=== PATIENT | male | born 1995 | race Caucasian/White ===

== ENCOUNTER 2024-11-05 11:21 | Emergency (ER) | payer OTHER, MEDICAID, MEDICARE, SELFPAY ==
--- OUTSIDE RECORDS SUMMARY | 2024-06-24 06:30 | XMS_ITS ---
Author Organization [facility], Address [address] [facility] [place] [address] Care Team Providers Care Parking Regulation Enforcement Officer Name Role Phone Aracely Leigh Primary Care Provider Barbara Sosa [phone] Allergies No Known Allergies REASON FOR VISIT 6wk f/u confusion Medications Medication SIG (Take, Route, Frequency, Duration) Notes Start Date End Date Status benztropine 1 mg tablet 1 tab(s) orally once Not-Taking losartan 50 mg tablet 1 tab(s) orally on ce a day Not-Taking multivitamin Not-Parish ing Adderall 20 mg tablet 1 tab(s) orally 2 times a day Not-Taking clonazePAM 1 mg tablet 1 tab(s) orally PRN Not-Taking sildenafil 50 mg tablet 1 tab(s) orally once a day Not-Taking perphenazine 8 mg tablet 1 tab(s) orally 2 times a day Active divalproex sodium 500 mg delayed release tablet 3 tabs orally once a day Active traZODone 50 mg tablet as directed orally Not-Taking LORazepam 0.5 mg tablet 1 tab(s) orally PRN Active buPROPion 300 mg/24 hours tablet, extended release 1 tab(s) orally every 24 hours Active Social History Social History Additional Details Category Social Info Options Details General Alcohol: No Caffeine: Yes soda Drug use: marijuana Lives with: Mother Encounters Encounter Location Date Provider Diagnosis [facility], [address] [facility] [address] [place] [address] 06/24/2024 Barbara Andino Plan Of Treatment No Information Progress Notes * Davis KIMDOB: [birth year] (29 yo M)Acc No.[id number]:06/24/2024 E30 Patient: Davis Jara Provider: Myra Andino CNP :1995 A ge:29 Y S ex:Male Date:06/24/2024 Address:[address] [place] [address], [id number] Pcp:Aracely Leigh Patient's Default Facility: [facility] Subjective: * Chief Complaints: * 6 wk f/u confusion * ROS: 1 0 systems including constitutional, neurological, eyes, ENT, cardiovascular, respiratory, GI, , musculoskeletal, and skin were reviewed. Negative unless otherwise specified in HPI. * Medical History: ADHD Anxiety Impotence Bipolar 1 disorder Depression Schizoaffective disorder Vitamin D Deficiency Hyperlipidemia GOUT Heat syncope Nausea and vomiting Dysuria Hyepertension Medical History Verified * Surgical History: Colonoscopy & biopsy 10/2013 Excision - Sebaceous cyst 02/2016 Surgical History verified. * Hospitalization/Major Diagno stic Procedure: Psych Floor - Suicidal ideas 08/14/2019 [facility] - Suicidal ideas 04/25/2020 [facility] - confusion 02/2024 Hospitalization Verified. * Family History: F amily History Verified.. Fhx of Parkinson's Grandparents had strokes. * Social History: G eneral: T obacco Use D o you smoke? never smoker .. A lcohol: No. Drug use: marijuana. Caffeine: Yes soda. Lives with: Mother. Social History Verified. * Medications: T akingbuPROPion 300 mg/24 hours tablet, extended release 1 tab(s) orally every 24 hours divalproex sodium 500 mg delayed release tablet 3 tabs orally once a day LORazepam 0.5 mg tablet 1 tab(s) orally PRN perphenazine 8 mg tablet 1 tab(s) orally 2 times a day Taking buPROPion 300 mg/24 hours tablet, extended release 1 tab(s) orally every 24 hours Taking divalproex sodium 500 mg delayed release tablet 3 tabs orally once a day Taking LORazepam 0.5 mg tablet 1 tab(s) orally PRN Taking perphenazine 8 mg tablet 1 tab(s) orally 2 times a day Not-TakingAdderall(amphetamine-dextroamphetamine) 20 mg tablet 1 tab(s) orally 2 times a day benztropine 1 mg tablet 1 tab(s) orally once clonazePAM 1 mg tablet 1 tab(s) orally PRN losartan 50 mg tablet 1 tab(s) orally once a day multivitamin sildenafil 50 mg tablet 1 tab(s) orally once a day traZODone 50 mg tablet as directed orally Not-Taking Adderall(amphetamine-dextroamphetamine) 20 mg tablet 1 tab(s) orally 2 times a day Not-Taking benztropine 1 mg tablet 1 tab(s) orally once Not-Taking clonazePAM 1 mg tablet 1 tab(s) orally PRN Not-Taking losartan 50 mg tablet 1 tab(s) orally once a day Not-Taking multivitamin Not-Taking sildenafil 50 mg tablet 1 tab(s) orally once a day Not-Taking traZODone 50 mg tablet as directed orally * Allergies: N .K.D.A.yesAllergies Verified. Billing Information: * Procedure Codes: * Electronic signature of Sophia Andino NP on 11/05/2024 at 03:28 PM EDT Sign off status: Pending * Provider: Myra Andino CNP Date: 0 06/24/2024 Generated for Melissa poole/Corrie/Maverick on: 11/05/2024 03:28 PM EDT
--- OUTSIDE RECORDS SUMMARY | 2024-07-01 07:30 | XMS_ITS ---
Author Organization [facility], Address [address] [address] Care Team Providers Care Bartender Helper Name Role Phone Aracely Leihg Primary Care Provider Barbara Sosa [phone] Allergies No Known Allergies REASON FOR VISIT f/u confusion Medications Medication SIG (Take, Route, Frequency, Duration) Notes Start Date End Date Status perphenazine 8 mg tablet 1 tab(s) orally 2 times a day Active LORazepam 0.5 mg tablet 1 tab(s) orally PRN Active traZODone 50 mg tablet as directed orally Not-Taking sildenafil 50 mg tablet 1 tab(s) orally once a day Not-Taking losartan 50 mg tablet 1 tab(s) orally on ce a day Not-Taking multivitamin Not-Parish ing benztropine 1 mg tablet 1 tab(s) orally once Not-Taking clonazePAM 1 mg tablet 1 tab(s) orally PRN Not-Taking buPROPion 300 mg/24 hours tablet, extended release 1 tab(s) orally every 24 hours Active divalproex sodium 500 mg delayed release tablet 3 tabs orally once a day Active Adderall 20 mg tablet 1 tab(s) orally 2 times a day Not-Taking Social History Social History Additional Details Category Social Info Options Details General Alcohol: No Caffeine: Yes soda Drug use: marijuana Lives with: Mother Encounters Encounter Location Date Provider Diagnosis [facility], [address] [facility] [address] [place] [phone] 07/01/2024 Barbara Andino Plan Of Treatment No Information Progress Notes * Davis KIMDOB: [birth year] (29 yo M)Acc No.[id number]:07/01/2024 E30 Patient: Davis Jara Provider: Myra Andino CNP :1995 A ge:29 Y S ex:Male Date:07/01/2024 Address:[address] [place] [address], [facility] Pcp:Aracely Leigh Patient's Default Facility: [facility] Subjective: * Chief Complaints: * F /u confusion * ROS: 1 0 systems including [...] ideas 08/14/2019 [facility] - Suicidal ideas 04/25/2020 [facility] - confusion 02/2024 Hospitalization Verified. * [...] * Procedure Codes: * Electronic signature of Beve shola Andino NP on 11/05/2024 at 03:28 PM EDT Sign off status: Pending * Provider: Myra Andino CNP Date: 0 07/01/2024 Generated for Melissa poole/Corrie/Maverick on: 0 11/05/2024 03:28 PM EDT
--- NOTE | ~2024-11-05 | XR_ITS ---
EXAMINATION: XR HAND, RIGHT CLINICAL INFORMATION: hand trauma COMPARISON: None available. TECHNIQUE: PA, lateral, and oblique views of the right hand. FINDINGS: On the lateral projection, there is a comminuted fracture/bone fragment arising from the distal carpal row dorsally, most likely a hamate avulsion fracture. This is not as well appreciated on the AP or oblique views. No additional fracture or dislocation. Joint spaces appear preserved. There is overlying soft tissue swelling of the dorsum of the hand and dorsum of the wrist. XR/XR hand RT min 3V IMPRESSION: Comminuted avulsion fracture of the dorsal hamate. Associated soft tissue swelling. Electronically signed by: Davis Duran MD 11/05/2024 12:03 PM EDT
[2024-11-05 11:28] VITALS: BP 136/90; PULSE 92; O2SAT 97
[2024-11-05 11:32] VITALS: BP 118/70; PULSE 90; RESP 18; TEMP 36; O2SAT 97; BMI 39.6
--- NOTE | 2024-11-05 11:32 | ED_ITS ---
HPI - Extremity Injury (Upper) General Chief Complaint: Extremity Injury, Upper Stated Complaint: R HAND PAIN/SWELLING [facility] Time Seen by Provider: 11/05/24 11:28 Source: patient and EMS Mode of arrival: EMS Limitations: no limitations History of Present Illness ED Provider: HPI narrative: 29-year-old male coming from [facility], he punched a door after somebody called him a white devil , bruising and swelling of the extremity noted Related Data Previous Rx's ?Medication ?Instructions ?Recorded naproxen 500 mg tablet 500 mg PO BID 10 days #20 ta bs 11/05/24 Allergies Allergy/AdvReac Type Severity Reaction Status Date / Time No Known Allergies Allergy Verified 11/05/24 11:35 Review of Systems Constitutional: Constitutional: Reports as per [facility] Social History Social History Advance Directives: No Advance Directives Information Provided: No Do you have a plan to hurt others: No Plan Physical Exam Vital Signs: Vital Signs: Last Vital Signs Temp 96.8 F 11/05/24 11:32 Pulse 90 11/05/24 11:32 Resp 18 11/05/24 11:32 BP 118/70 11/05/24 11:32 Pulse Ox 97 11/05/24 11:32 O2 Del Method Room Air 11/05/24 11:32 BMI result Body Mass Index 39.6 Const: Other: Alert and oriented x4 Examination of right upper extremity with full range of motion of the shoulder, elbow and wrist, swelling of the dorsum of the hand and some bruising on the palmar aspect see able to squeeze my hands but his fingers hitchhike his thumb, radial ulnar pulses +2 Medications Administered Discontinued Medications Generic Name Dose Route Start Last Admin Trade Name Freq PRN Reason Stop Dose Admin Ketorolac Tromethamine 15 mg 11/05/24 11:35 11/05/24 11:42 Ketorolac Tromethamine 15 Mg/Ml Vial IM 11/05/24 11:36 15 mg ONCE ONE Administration Medical Decision Making Medical Decision Making [facility] Narrative: Anticipating metacarpal fractures on x-ray, this is closed injury, no neurovascular compromise 12:11 PM 11/05/2024 (Dr. Zachary Velarde): We will make sure patient has ortho follow up, consulted Orthopedics ( Dante Almendarez) for hook of hamate fracture with displacement Differential Diagnosis Differential Diagnoses: The differential diagnosis associated with the presentation includes (Compound fracture, nerve injury, arterial injury, infection, wrist fracture) Independent Interpretation I performed an independent interpretation of an: Plain X-Ray (Hook of hamate fracture with displacement) Radiology Impression Discussion of test interpretation with radiology: I have reviewed the radiologist's reading. (IMPRESSION: Comminuted avulsion fracture of the dorsal hamate. Associated soft tissue swelling. ) Procedures Orthopedic Splinting/Casting Right hand: Side: right Upper Extremity Injury Location: hand Upper Extremity Immobilizer: volar splint Discharge Plan Discharge Clinical Impression: Fracture of hamate bone, closed Patient Disposition: Home, Self-Care Instructions: Closed Reduction (ED) Additional Instructions: You have fracture of the bone of your hand, I will likely require surgery but this can be discussed with orthopedic surgeons, I referred your name to them, they will make sure you have an appointment but I will also provide you with a number to call if you do not hear from them in 1 week, and the meantime Naprosyn 500 mg twice a day, keep your arm in splint, keep it dry. Prescriptions: New naproxen 500 mg tablet 500 mg PO BID 10 Days Qty: 20 0RF Referrals: [facility] [Provider Group] Print Language: Occitan
[2024-11-05 12:47] VITALS: BP 130/75; PULSE 85; RESP 19; TEMP 36.7; O2SAT 97
--- NOTE | 2024-11-05 12:52 | PHA.MEDREC ---
Pharmacy Consult ? Medication Reconciliation Pharmacy has completed the medication reconciliation. Used list from Maribel Whittington to confirm meds.
--- OUTSIDE RECORDS SUMMARY | 2024-11-05 15:28 | XMS_ITS | Patient Health Record ---
Author Organization [facility] Address [address] [facility] [address] [place] [address] Care Team Providers Care Tool Rental Technician Name Role Phone Juanboston Aracely Primary Care Provider Barbara Sosa Unavailable [phone] Marvin Blount Unavailable [phone] Allergies No Known Allergies Results Component Value Reference Range Notes Brain (C-/C+) CPT 59553 Reviewed date:05/13/2024 11:14:37 AM Interpretation: Performing Lab: Notes/Report: EEG Ambulatory 72 hour Reviewed date:07/23/2024 08:56:16 AM Interpretation: Performing Lab: Notes/Report: Reason For Referral Reason xx Referring Provider First Name Aracely Referring Provider Last Name Reese Referred Organization [facility] Referred Provider Barbara Andino Referred Address [address] [place] [address],[facility],[place], [place],[address], General Notes Layla Martinez 05/06/2024 09:07:05 AM >sent request Referral Priority Routine Reason Please refer patient to [facility] to assess for papilledema, re: possible intracranial hypertension seen on Brain MRI, patient has headaches and blurry vision Referral Organization [facility] Referring Provider First Name Barbara Referring Provider Last Name Sina Referring Provider Speciality Neurology Referred Provider [facility] Referral Priority Routine Medications Medication SIG (Take, Route, Frequency, Duration) Notes Start Date End Date Status Adderall 20 mg tablet 1 tab(s) orally 2 times a day Not-Taking multivitamin Not-Parish ing benztropine 1 mg tablet 1 tab(s) orally once Not-Taking clonazePAM 1 mg tablet 1 tab(s) orally PRN Not-Taking buPROPion 300 mg/24 hours tablet, extended release 1 tab(s) orally every 24 hours Active divalproex sodium 500 mg delayed release tablet 3 tabs orally once a day Active perphenazine 8 mg tablet 1 tab(s) orally 2 times a day Active LORazepam 0.5 mg tablet 1 tab(s) orally PRN Active traZODone 50 mg tablet as directed orally Not-Taking sildenafil 50 mg tablet 1 tab(s) orally once a day Not-Taking losartan 50 mg tablet 1 tab(s) orally on ce a day Not-Taking Social History Social History Additional Details Category Social Info Options Details General Alcohol: No Caffeine: Yes soda Drug use: marijuana Lives with: Mother Vital Signs Oximetry 99 % 05/13/2024 Blood pressure diastolic 72 mm Hg 05/13/2024 Height 74 in 05/13/2024 Blood pressure systolic 124 mm Hg 05/13/2024 Weight 302 lbs 05/13/2024 BMI 38.77 kg/m2 05/13/2024 Encounters Encounter Location Date Provider Diagnosis [facility], [address] [address] 08/05/2024 Marvin Blount [facility], [address] [address] 05/13/2024 Barbara Andino Confusion R41.0 [facility], [address] [address] 10/22/2024 Barbara Andino [facility], [address] [address] 05/13/2024 Barbara Andino Confusion R41.0 [facility], [address] [address] 05/28/2024 Barbara Andino [facility], [address] [address] 05/29/2024 Barbara Andino [facility], [address] [address] 07/03/2024 Brabara Andino [facility], [address] [address] 08/06/2024 Barbara Andino [facility] [address] [facility] [place] [address] 08/12/2024 Barbara Andino [facility] [address] [facility] [place] [address] 09/23/2024 Barbara Andino [facility], [address] [place] [address] 09/30/2024 Barbara Andino [facility], [address] [place] [address] 09/30/2024 Barbara Wang [facility], [address] [place] [address] 10/31/2024 Barbara Andino Assessments Encounter Date Diagnosis (ICD Code) Assessment Notes Treatment Notes Treatment Clinical Notes Section Notes 05/13/2024 Confusion (ICD-10 - R41.0) Davis is a 29 yea r old M with a history of vasculitis, obesity, concussions, migraines, bipolar 1 disorder, and schizoaffective disorder seen today for initial evaluation of transient episodes of confusion. He is accompanied by his mother today who helps provide collateral history. Patient's primary symptoms today include transient episodes of confusion and shaking of his head, upper, and lower extremities. There is no loss of consciousness, tongue-biting, or bowel/bladder incontinence. He describes not knowing where he is or who he is which occurs at least once per day. Our plan will be to order a Brain MRI and 72 hour ambulatory EEG to see if we can capture an event. I recommended patient continue to follow-up with psychiatry for management of his Schizoaffective Disorder and Bipolar 1 Disorder. He denies SI/HI at this time. We discussed the risk of prolonged seizures. We discussed the importance of identifying triggers that can lower seizure thresholds such as alcohol, medication noncompliance, infection and sleep deprivation. Also discussed the [place] state driving law of voluntarily surrendering their bookmobile driver's license for six months after experiencing a seizure. We discussed seizure safety precautions such as avoiding heights, operating heavy machinery, and swimming alone. This case was discussed with Dr. Huang and he is in agreement with the assessment and treatment plan outlined above. Total time spent by provider on this date of service in chart prep, face to face time, counseling, documentation, independent interpretation, and care coordination was greater than 60 minutes. 05/13/2024 Confusion (ICD-10 - R41.0) Plan Of Treatment No Information Insurance Providers Payer Name Payer Address Payer Phone Subscriber Number Group Number Insured Name Patient Relationship to Insured Coverage Start Date Coverage End Date Plynked [facility] [address] [facility] [id number] [phone] [id number] Davis Guo Self - patient is the insured Medical (General) History Medical History History ICD Code ADHD Anxiety Impotence Bipolar 1 disorder depression schizoaffective disorder Vitamin D Deficiency Hyperlipidemia GOUT Heat syncope nausea and vomiting dysuria hyepertension Surgical History Surgery Date(Month/Year) Colonoscopy & biopsy 10/2013 Excision - Sebaceous cyst 02/2016 Hospitalization History Reason Date(Month/Year) Psych Floor - Suicidal ideas 0 [facility] - confusion 02/2024 [facility] - Suicidal ideas 04/25/2020
--- OUTSIDE RECORDS SUMMARY | 2024-11-05 15:28 | XMS_ITS | Clinical Summary ---
Author Organization [facility] Address [address] [place], [place] [address] Care Team Providers Care Supervisor Adult Education Name Role Phone Crispin Eastman MD Primary Care Provider [phone] Allergies No known active allergies Medications traMADol-acetam inophen (ULTRACET) 37.5-325 mg per tablet 1 TAB PO BID 4 Active dextroamphetami ne-amphetamine ER (ADDERALL XR) 30 MG 24 hr capsule 30 MG PO BID 4 Active Additional Information Patient not taking.Reported on 10/29/2024 divalproex (DEPAKOTE) [address] tablet 500 MG PO BID 4 Active Additional Information Patient not taking.Reported on 10/29/2024 LORazepam (ATIVAN) 1 MG tablet 1 MG PO PRN PRN Insomnia 4 Active Additional Information Patient not taking.Reported on 10/29/2024 clonazePAM (KlonoPIN) 1 MG tablet 1 MG PO PRN PRN Anxiety 4 Active ARIPiprazole (ABILIFY) 15 MG tablet Take 1 tablet (15 mg total) by mouth in the morning. 5 Active methylphenidate HCl (RITALIN) 10 MG tablet Take 1 tablet (10 mg total) by mouth daily as needed. 5 Active prazosin (MINIPRESS) 1 MG capsule Take 1 capsule (1 mg total) by mouth at bedtime. 5 Active telmisartan (MICARDIS) 20 MG tablet Take 1 tablet (20 mg total) by mouth in the morning. 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 Schizoaffective disorder, unspecified 10/04/2023 Encounters Date Type Department Care Team Description 10/29/2024 2:45 PM EDT - 10/30/2024 3:12 PM EDT Hospital Encounter [facility] Emergency Department [address] [place] [address] West Reagan MD Grant, MD Issa Moreau, Carissa Teresa MD Psychosis, unspecified psychosis type (HCC) (Primary Dx) Discharge Disposition: Transfer to Acute Care Hospital from Last 3 Months Social History Tobacco Use Types Packs/Day Years Used Date Smoking Tobacco: Never Smokeless Tobacco: Never Tobacco Cessation:Counseling Given: Not Answered Alcohol Use Standard Drinks/Week Comments Not Currently 0 (1 standard drink = 0.6 oz pur e alcohol) AUDIT C Answer Date Recorded How often have you had a dri nk containing alcohol, in the past year? 1 03/03/2024 How many standard drinks con taining alcohol have you had on a typical day when you are drinking, in the past year? 1 0 03/03/2024 How often have you had six o r more drinks on one occasion, in the past year? 1 03/03/2024 Education Answer Date Recorded What is the highest level of school you have completed or the highest degree you have received? 12th grade 01/31/2024 Sex and Gender Information Value Date Recorded Sex Assigned at Male 01/31/2024 10:27 AM EST Legal Sex Male 7:59 PM EDT Gender Identity Male 01/31/2024 10:27 AM EST Sexual Orientation Not on file Last Filed Vital Signs Vital Sign Reading Time Taken Comments Blood Pressure 131/78 10/30/2024 8:39 AM EDT Pulse 98 10/30/2024 8:39 AM EDT Temperature 36.6 C (97.9 F) 10/30/2024 6:44 AM EDT Respiratory Rate 18 10/30/2024 8:39 AM EDT Oxygen Saturation 97% 10/30/2024 8:39 AM EDT Inhaled Oxygen Concentration - - Weight 122 kg (270 lb) 03/02/2024 8:17 PM EST Height 188 cm (6' 2 ) 03/02/2024 8:17 PM EST Body Mass Index 34.67 03/02/2024 8:17 PM EST Plan of Treatment Health Maintenance Due Date Last Done Comments Depression Screening 1997 Hepatitis C Screening 2011 DTaP,Tdap,and Td Vaccines (1 - Tdap) 01/29/2012 COVID-19 Vaccine (2023-2 5 season) 2024 Influenza Vaccine (#1) 2024 Blood Pressure 10/29/2025 10/30/2024 Meningococcal B Vaccines Aged Out No longer eligible based on patient's age to complete this topic Meningococcal Vaccines Aged Out No lo nger eligible based on patient's age to complete this topic Pneumococcal Vaccine: Pediat rics (0 to 5 Years) and At-Risk Patients (6 to 64 Years) Aged Out No longer eligi ble based on patient's age to complete this topic Procedures Procedure Name Priority Date/Time Associated Diagnosis Comments DRUG SCREEN, URINE STAT 10/29/2024 3: 24 PM EDT CBC AND DIFFERENTIAL STAT 10/29/2024 3:06 PM EDT CBC AND DIFFERENTIAL STAT 10/29/2024 3:06 PM EDT TOXICOLOGY SCREEN, BLOOD STAT 10/29/2024 3:06 PM EDT BASIC METABOLIC PANEL STAT 10/29/2024 3:06 PM EDT from Last 3 Months Results * (ABNORMAL) Drug Screen, Urine (10/29/2024 3:24 PM EDT) Amphetamines Screen, Urine Not Detected Not Detected 10/29/2024 4:01 PM [facility] Barbiturates Screen, Urine Not Detected Not Detected 10/29/2024 4:01 PM [facility] Benzodiazepine Screen, Urine Not Detected Not Detected 10/29/2024 4:01 PM [facility] Cannabinoids Screen, Urine Detected(A) Not Detected 10/29/2024 4:01 PM [facility] Cocaine Metabolite Screen, Urine Not Detected Not Detected 10/29/2024 4:01 PM [facility] MDMA Urine Not Detected Not Detected 10/29/2024 4:01 PM [facility] Opiates Screen, Urine Not Detected Not Detected 10/29/2024 4:01 PM [facility] Oxycodone Screen, Urine Not Detected Not Detected 10/29/2024 4:01 PM [facility] Phencyclidine Screen, Urine Not Detected Not Detected 10/29/2024 4:01 PM [facility] Propoxyphene Screen, Urine Not Detected Not Detected 10/29/2024 4:01 PM [facility] Tricyclics Screen Not Detected Not Detected 10/29/2024 4:01 PM [facility] Urine URINE SPECIMEN / Unknown Collection / Unknown 10/29/2024 3:24 PM EDT 10/29/2024 3:43 PM [facility] - 10/29/2024 4:01 PM EDT Urine drug results are for screening purposes anly and should only be used for medical purposes. Positive results are not confirmed and should not be used for non-medical purposes. The following cut-offs are established for this assay: Acetaminophen/Paracetamol 5ug/mL Amphetamines 1000 ng/mL Methamphetamines 1000 ng/mL Barbiturates 300 ng/mL Benzodiazepines 300 ng/mL Cocaine 300 ng/mL Methadone 300 ng/mL MDMA 500 ng/mL Opiates 300 ng/mL Oxycodone 100 ng/mL Phenyclidine 25 ng/mL Propoxyphene 300 ng/mL THC 50 ng/mL Tricyclic Antidepressants 1000 ng/mL us West Reagan MD URINE ORDERABLES Final Result [facility] [address] [place] [address], * CBC and Differential (10/29/2024 3:06 PM EDT) WBC 9.11 4.00 - 10.00 K/uL 10/29/2024 3:14 PM [facility] RBC 5.47 4.60 - 6.10 M/uL 10/29/2024 3:14 PM [facility] Hemoglobin 15.2 13.7 - 17.5 g/dL 10/29/2024 3:14 PM [facility] Hematocrit 45.4 40.0 - 51.0 % 10/29/2024 3:14 PM [facility] MCH 27.8 26.0 - 32.0 pg 10/29/2024 3:14 PM [facility] MCHC 33.5 30.5 - 35.8 g/dL 10/29/2024 3:14 PM [facility] MCV 83 82 - 98 fL 10/29/2024 3:14 PM [facility] RDW 13.2 10.5 - 15.5 % 10/29/2024 3:14 PM [facility] RDW-SD 39.6 35.1 - 46.3 fL 10/29/2024 3:14 PM [facility] Platelet Count 303 150 - 400 K/uL 10/29/2024 3:14 PM [facility] MPV 9.8 8.3 - 12.4 fL 10/29/2024 3:14 PM [facility] Neutrophil 59.7 34.0 - 71.0 % 10/29/2024 3:14 PM [facility] Lymphocyte 33.2 19.0 - 53.0 % 10/29/2024 3:14 PM [facility] Monocyte 5.5 5.0 - 13.0 % 10/29/2024 3:14 PM [facility] Eosinophil 1.1 1.0 - 7.0 % 10/29/2024 3:14 PM [facility] Basophil 0.3 0.0 - 1.0 % 10/29/2024 3:14 PM [facility] Immature Granulocyte (Campbell, Myelo, Promyelocyte) 0.2 0.0 - 2.0 % 10/29/2024 3:14 PM [facility] Absolute Neutrophil Count 5.44 1.60 - 6.10 K/uL 10/29/2024 3:14 PM [facility] Absolute Immature Granulocyte (Campbell, Myelo, Promyelocyte) 0.02 0.00 - 0.80 K/uL 10/29/2024 3:14 PM [facility] Absolute Lymphocyte Count 3.02 1.20 - 3.70 K/uL 10/29/2024 3:14 PM [facility] Absolute Monocyte Count 0.50 0.20 - 0.80 K/uL 10/29/2024 3:14 PM [facility] Absolute Eosinophil Count 0.10 0.04 - 0.54 K/uL 10/29/2024 3:14 PM [facility] Absolute Basophil Count 0.03 0.01 - 0.08 K/uL 10/29/2024 3:14 PM [facility] Blood PERIPHERAL BLOOD SPECIMEN / Unknown Venipuncture / Unknown 10/29/2024 3:06 PM EDT 10/29/2024 3:10 PM EDT West Reagan MD LAB BLOOD ORDERABLES Final Res ult Performing Organization Address [facility] Co de Phone Number [facility] [address] [place] [address], [place] * (ABNORMAL) Plasma Toxicology Screen (10/29/2024 3:06 PM EDT) Acetaminophen Result,Blood <15 <30 ug/mL 10/29/2024 3:54 PM [facility] Alcohol <10 <10 mg/dL 10/29/2024 3:54 PM [facility] Salicylate Level, Blood <1(L) 3 - 20 mg/dL 10/29/2024 3:54 PM [facility] Blood PERIPHERAL BLOOD SPECIMEN / Unknown Venipuncture / Unknown 10/29/2024 3:06 PM EDT 10/29/2024 3:11 PM EDT us West Reagan MD LAB BLOOD ORDERABLES Final Res ult Performing Organization Address [facility]/ZIP Co de Phone Number [facility] [address] [place] [address], [place] * (ABNORMAL) Basic Metabolic Panel (10/29/2024 3:06 PM EDT) Sodium 140 136 - 145 mmol/L 10/29/2024 3:52 PM T [facility] Potassium 3.8 3.5 - 5.4 mmol/L 10/29/2024 3:52 PM T [facility] Chloride 102 98 - 107 mmol/L 10/29/2024 3:52 PM T [facility] Total CO2/Bicarbonat e 22 22 - 32 mmol/L 10/29/2024 3:52 PM T [facility] BUN 12 6 - 20 mg/dL 10/29/2024 3:52 PM T [facility] Creatinine, Blood 1.01 0.70 - 1.20 mg/dL 10/29/2024 3:52 PM T [facility] Glucose, Blood 116(H) 70 - 115 mg/dL 10/29/2024 3:52 PM [facility] Calcium 9.1 8.5 - 10.6 mg/dL 10/29/2024 3:52 PM [facility] Estimated GFR(CKD-EPI) 102 mL/min/BSA 10/29/2024 3:52 PM [facility] Blood PERIPHERAL BLOOD SPECIMEN / Unknown Venipuncture / Unknown 10/29/2024 3:06 PM EDT 10/29/2024 3:11 PM EDT us West Reagan MD LAB BLOOD ORDERABLES Final Res ult Performing Organization Address City/State/[facility] Co de Phone Number [facility] [address] [place] [address], from Last 3 Months Insurance Parchment Parchment Parchment Parchment Care Teams Supervisor Adult Education Relationship Specialty Start Date End Date Crispin Eastman MD [address] [address] PCP - General 10/04/23
--- OUTSIDE RECORDS SUMMARY | 2024-11-05 15:29 | XMS_ITS | Continuity of Care Document ---
Author Name Ortega Vega Address [address] [place] [address] Organization Unknown Address [address] [facility] [address] [place] [address] Problems No known problems
--- NOTE | 2024-11-05 16:00 | HO.NURTONUR ---
Pt returning to [facility]. Phone report/update given to Shereen MOSELEY. Pt given discharge instructions as well as prescription prior to discharge. Pt transported via EMS back to [facility]
[2024-11-05 16:02] VITALS: BP 130/75; PULSE 85; RESP 19; TEMP 36.7; O2SAT 97
== END 2024-11-05 16:13 ==
PROVIDERS: Emergency Provider Emergency Medicine
DX: S62.141A Displaced fracture of body of hamate [unciform] bone, right wrist, initial encounter for closed fracture (principal); X58.XXXA Exposure to other specified factors, initial encounter; Y93.9 Activity, unspecified; Y92.9 Unspecified place or not applicable; Y99.8 Other external cause status
CPT/HCPCS: 29125; 73130; 96372; 99285; J1885

== ENCOUNTER → 2024-11-05 11:35 | Outpatient (BNV) | payer OTHER, MEDICAID, MEDICARE, SELFPAY | PROVIDERS: Emergency Provider Emergency Medicine; Visit Provider Radiology Diagnostic Radiology | DX: S62.141A Displaced fracture of body of hamate [unciform] bone, right wrist, initial encounter for closed fracture (principal) | CPT/HCPCS: 73130 ==